=== PATIENT | male | born 1970 | race Asian ===

== ENCOUNTER 2020-12-26 17:46 | Emergency (ER) | payer OTHER ==
[2020-12-26 17:55] VITALS: BP 109/73; PULSE 92; BMI 28.2
[2020-12-26] MEDS ORDERED: DIPHTH,PERTUSS(ACELL),TET 0.5 ML DISP.SYRIN IM ONE ×2 (18:34→18:39)
== END 2020-12-26 18:42 | disposition home or self-care (01) ==
LOC: JERFT 17:46
PROC: 3E0234Z Introduction of Serum, Toxoid and Vaccine into Muscle, Percutaneous Approach (ICD-10-PCS; principal; 2020-12-26)
DX: S00.91XA Abrasion of unspecified part of head, initial encounter (principal)
CPT/HCPCS: 90471; 90715; 99283-25